=== PATIENT | female | born 1935 | race Caucasian/White ===

== ENCOUNTER 2016-09-10 09:32 | Inpatient (IN) | payer OTHER, MEDICARE ==
[~2016-09-10] VITALS: Ht 157.5 cm; Wt 69.2 kg
[~2016-09-10 09:32] MED LIST: ASPIR 8181 M1 PO; BACTRIM,SEPT1 TABLET PO; CHOLESTYRAMINE P4 GM PO; CHOLESTYRAMINE210 GM PO; COZAAR100 MG PO; COZAAR50 MG PO; FAMOTIDINE20 MG PO; FLEXERIL5 MG PO; FUROSEMIDE20 MG PO; HYDROCODON-ACE1 EAC7 PO; IRON325 M1 PO; LASIX20 MG PO; LEVEMIR FL100 UNIT/1 SC; LEVEMIR FL100 UNITS/ SC; LEVEMIR100 UNIT/2 SC; LEVOTHROID50 MCG PO; LEVOTHYROXINE75 MCG PO; LOPRESSOR100 M1 PO; LOSARTAN POTAS100 MG PO; LOW DOSE ASPIRI81 M1 PO; METAMUCIL0.52 GM PO; METOPROLOL SUC100 MG PO; METOPROLOL TAR100 MG PO; MIRALAX17 GM PO; NOVOLOG; NOVOLOG 10100 UNITS/ SC; NOVOLOG PE100 UNITS/; PEPCID20 MG PO; PREDNISONE20 MG PO; SYNTHROID50 MCG PO; SYNTHROID75 MCG PO; TOPROL XL100 MG PO; VITAMIN D-32000 UNI1 PO; VITAMIN D2000 UNIT PO; [UNRECOGNIZED DRUG - OTHER] PO
[2016-09-10 10:16] VITALS: BP 180/67
[2016-09-10 10:22] LABS: POINT-OF-CARE METER ID UU14174212
[2016-09-10 15:16] LABS: POINT-OF-CARE METER ID UU13113675
[2016-09-10 17:48] VITALS: BP 151/70
[2016-09-10 17:54] LABS: POINT-OF-CARE METER ID UU13113712
[2016-09-10 20:04] VITALS: BP 144/64
[2016-09-10 22:20] LABS: POINT-OF-CARE METER ID UU13113712
[2016-09-11] VITALS: BP 146/65
[2016-09-11 06:15] LABS: HEMATOCRIT 33.7 % (36.0-46.0); MCV 89.4 FL (83-99)
[2016-09-11 06:45] LABS: ANION GAP 10 MEQ/L (2-14); CHLORIDE 108 MEQ/L (99-109); GFR ESTIMATE (CALCULATED) 42 mL/min/; GLUCOSE 255 mg/dL (70-99); POTASSIUM 4.2 MEQ/L (3.7-5.4); SAMPLE HEMOLYSIS CHECK 0; SAMPLE ICTERIC CHECK 0; SAMPLE LIPEMIA CHECK 0; SODIUM 140 MEQ/L (136-147); UREA NITROGEN (BUN) 21 mg/dL (9-23)
[2016-09-11 08:00] VITALS: BP 138/64
[2016-09-11 11:04] LABS: POINT-OF-CARE METER ID UU13113712
[2016-09-11 11:51] VITALS: BP 162/67
[2016-09-11 15:34] VITALS: BP 159/68
[2016-09-11 16:22] LABS: POINT-OF-CARE METER ID UU13113720
[2016-09-11 19:53] VITALS: BP 167/73
[2016-09-11 22:03] LABS: POINT-OF-CARE METER ID UU13113712
[2016-09-12] VITALS: BP 184/80
[2016-09-12 02:23] LABS: ADD MIUA? YES; BILIRUBIN NEGATIVE; BLOOD MODERATE; COLOR YELLOW ((YELLOW)); GLUCOSE (STRIP) 150; KETONES NEGATIVE; LEUKOCYTES NEGATIVE; NITRITE NEGATIVE; PROTEIN (STRIP) NEGATIVE; SPECIFIC GRAVITY 1.013 (1.000-1.030); UROBILINOGEN 0.2 MG/DL (0.2-1.0)
[2016-09-12 02:30] LABS: BACTERIA NONE SEEN /HPF; EPITHELIAL CELLS 1+ /HPF; HYALINE CASTS 0-5 /LPF; MUCUS NONE SEEN /LPF; RED BLOOD CELLS 0-5 /HPF (0-5); WHITE BLOOD CELLS 0-5 /HPF (0-5)
[2016-09-12 04:00] VITALS: BP 185/72
[2016-09-12 06:24] LABS: HEMATOCRIT 32.8 % (36.0-46.0); MCV 89.6 FL (83-99)
[2016-09-12 07:31] LABS: POINT-OF-CARE METER ID UU13113712
[2016-09-12 08:06] VITALS: BP 177/76
[2016-09-12 12:13] LABS: POINT-OF-CARE METER ID UU13113712
[2016-09-12 12:20] VITALS: BP 186/78
[2016-09-12] MEDS ORDERED: BENADRYL25 MG PO (15:31)
[2016-09-12] MEDS ORDERED: XARELTO10 MG PO (15:31)
[2016-09-12] MEDS ORDERED: HYDROCODON-ACE1 EAC7 PO (15:33)
[2016-09-12] MEDS ORDERED: TYLENOL REGULA325 MG PO (15:34)
[2016-09-12] MEDS ORDERED: BISACODYL5 MG PO (15:35)
[2016-09-12] MEDS ORDERED: LIDOCAINE700 MG TD (15:36)
[2016-09-12 15:52] VITALS: BP 146/63
[2016-09-12 16:19] LABS: POINT-OF-CARE METER ID UU13113712
[2016-09-12] MEDS ORDERED: PEPCID20 MG PO (17:38)
[2016-09-12] MEDS ORDERED: CELEBREX200 MG PO (17:38)
[2016-09-12] MEDS ORDERED: REGLAN10 MG PO (17:39)
[2016-09-12] MEDS ORDERED: NORCO 10/3251 TABLET PO (17:40)
== END 2016-09-12 16:30 | DRG 470 ==
LOC: 2SOUTH 09:32 → 3WEST 17:20
PROVIDERS: Orthopaedic Surgery
PROC: 0SRC0J9 Replacement of Right Knee Joint with Synthetic Substitute, Cemented, Open Approach (ICD-10-PCS; principal; 2016-09-10)
DX: M17.11 Unilateral primary osteoarthritis, right knee (principal); I10 Essential (primary) hypertension; I25.2 Old myocardial infarction
CPT/HCPCS: 80048; 81003; 82948; 85014; 85018; C1713; J0131; J0360; J0690; J1170; J1815; J1885; J2175; J2250; J2795; J3010; J7030; J7050; L1820

== ENCOUNTER 2016-09-12 17:18 | Inpatient (IN) | payer OTHER, MEDICARE ==
[~2016-09-12] VITALS: Ht 157.5 cm; Wt 71.2 kg
[~2016-09-12 17:18] MED LIST changes: +BENADRYL25 MG PO; +BISACODYL5 MG PO; +LIDOCAINE700 MG TD; +TYLENOL REGULA325 MG PO; +XARELTO10 MG PO
[2016-09-12 17:31] VITALS: BP 146/63
[2016-09-12] MEDS ORDERED: CELEBREX200 MG PO (17:38)
[2016-09-12] MEDS ORDERED: PEPCID20 MG PO (17:38)
[2016-09-12] MEDS ORDERED: REGLAN10 MG PO (17:39)
[2016-09-12] MEDS ORDERED: NORCO 10/3251 TABLET PO (17:40)
[2016-09-12 21:14] LABS: POINT-OF-CARE METER ID UU14174215
[2016-09-13 00:05] VITALS: BP 174/80
[2016-09-13 04:43] VITALS: BP 154/72
[2016-09-13 05:20] LABS: HEMATOCRIT 33.1 % (36.0-46.0); MCH 29.8 PG (29.0-34.0); MCHC 33.5 G/DL (30.0-36.0); MCV 88.7 FL (83-99); MEAN PLAT.VOLUME 11.7 uM^3 (9.5-12.4); PLATELET COUNT 179 K/uL (156-360); RBC DIS.WIDTH-CV 13.4 % (11.8-14.6); RBC DIS.WIDTH-SD 43.8 % (39-53); RED BLOOD COUNT 3.73 M/uL (3.80-5.20)
[2016-09-13 05:21] LABS: WHITE BLOOD COUNT 9.7 K/uL (4.1-10.2)
[2016-09-13 06:36] LABS: ALKALINE PHOSPHATASE 70 IU/L (3-129); ANION GAP 7 MEQ/L (2-14); CHLORIDE 106 MEQ/L (99-109); GFR ESTIMATE (CALCULATED) 51 mL/min/; SAMPLE HEMOLYSIS CHECK 0; SAMPLE ICTERIC CHECK 0; SAMPLE LIPEMIA CHECK 0; SODIUM 140 MEQ/L (136-147); TOTAL BILIRUBIN 0.8 MG/DL (0.0-1.0); UREA NITROGEN (BUN) 18 mg/dL (9-23)
[2016-09-13 06:37] LABS: GLUCOSE 71 mg/dL (70-99)
[2016-09-13 07:25] LABS: POINT-OF-CARE METER ID UU14174215; POINT-OF-CARE USER ID AHSSSJB31
[2016-09-13 11:35] LABS: POINT-OF-CARE METER ID UU14174215; POINT-OF-CARE USER ID AHSSSJB31
[2016-09-13 15:38] VITALS: BP 168/71
[2016-09-13 17:00] LABS: POINT-OF-CARE METER ID UU14174215
[2016-09-13 21:13] LABS: POINT-OF-CARE METER ID UU13113720
[2016-09-14 05:01] LABS: CHLORIDE 109 mEq/L (99-109); SODIUM 141 mEq/L (136-147)
[2016-09-14 05:02] LABS: GLUCOSE 86 mg/dL (70-99)
[2016-09-14 05:04] LABS: ANION GAP 8 MEQ/L (2-14); POTASSIUM 4.1 mEq/L (3.7-5.4)
[2016-09-14 05:06] LABS: GFR ESTIMATE (CALCULATED) 51 mL/min/
[2016-09-14 05:07] LABS: UREA NITROGEN (BUN) 25 mg/dL (9-23)
[2016-09-14 05:41] VITALS: BP 148/66
[2016-09-14 07:47] LABS: POINT-OF-CARE METER ID UU13113720; POINT-OF-CARE USER ID AHSSSJB31
[2016-09-14 11:50] LABS: POINT-OF-CARE METER ID UU13113720; POINT-OF-CARE USER ID AHSSSJB31
[2016-09-14 15:35] VITALS: BP 145/115
[2016-09-14 16:11] VITALS: BP 148/62
[2016-09-14 16:29] LABS: POINT-OF-CARE METER ID UU13113720
[2016-09-14 21:15] LABS: POINT-OF-CARE METER ID UU14174215
[2016-09-15 05:48] VITALS: BP 146/64
[2016-09-15 06:36] LABS: POINT-OF-CARE METER ID UU13113720; POINT-OF-CARE USER ID ENVGAF
[2016-09-15 11:34] LABS: POINT-OF-CARE METER ID UU13113720; POINT-OF-CARE USER ID ENVGAF
[2016-09-15 15:36] VITALS: BP 177/93
[2016-09-15 16:15] LABS: POINT-OF-CARE METER ID UU14174215
[2016-09-15 21:16] LABS: POINT-OF-CARE METER ID UU14174215
[2016-09-16 05:11] VITALS: BP 129/71
[2016-09-16 05:51] LABS: EOSINOPHIL (%) 5.1 % (0-5); EOSINOPHIL COUNT 0.4 K/uL (0-0.3); HEMATOCRIT 30.4 % (36.0-46.0); IMMATURE GRANULOCYTE (%) 0.6 % (0.0-0.7); INSTRUMENT ABS NEUTROPHIL CT 3.8 K/uL; LYMPHOCYTE COUNT 2.1 K/uL (1.0-2.8); MCH 30.6 PG (29.0-34.0); MCHC 33.6 G/DL (30.0-36.0); MCV 91.3 FL (83-99); MEAN PLAT.VOLUME 11.7 uM^3 (9.5-12.4); MONOCYTE (%) 12.3 % (3-12); MONOCYTE COUNT 0.9 K/uL (0-0.8); NEUTROPHIL (%) 52.1 % (45-76); NEUTROPHIL COUNT 3.8 K/uL (1.8-6.4); PLATELET COUNT 228 K/uL (156-360); RBC DIS.WIDTH-CV 13.2 % (11.8-14.6); RBC DIS.WIDTH-SD 44.4 % (39-53); RED BLOOD COUNT 3.33 M/uL (3.80-5.20); WHITE BLOOD COUNT 7.3 K/uL (4.1-10.2)
[2016-09-16 06:21] LABS: ALKALINE PHOSPHATASE 78 IU/L (3-129); ANION GAP 8 MEQ/L (2-14); CHLORIDE 106 MEQ/L (99-109); GFR ESTIMATE (CALCULATED) 51 mL/min/; GLUCOSE 83 mg/dL (70-99); SAMPLE HEMOLYSIS CHECK 0; SAMPLE ICTERIC CHECK 0; SAMPLE LIPEMIA CHECK 0; SODIUM 139 MEQ/L (136-147); TOTAL BILIRUBIN 0.9 MG/DL (0.0-1.0); UREA NITROGEN (BUN) 21 mg/dL (9-23)
[2016-09-16 06:37] LABS: POINT-OF-CARE METER ID UU14174215; POINT-OF-CARE USER ID ENVGAF
[2016-09-16 11:08] LABS: POINT-OF-CARE METER ID UU14174215
[2016-09-16 15:13] VITALS: BP 177/73
[2016-09-16 17:01] LABS: POINT-OF-CARE METER ID UU14174215
[2016-09-16 21:12] LABS: POINT-OF-CARE METER ID UU13113720
[2016-09-17 05:56] VITALS: BP 193/74
[2016-09-17 06:09] VITALS: BP 153/67
[2016-09-17 07:51] LABS: POINT-OF-CARE METER ID UU14174215; POINT-OF-CARE USER ID AHSSSJB31
[2016-09-17 11:33] LABS: POINT-OF-CARE METER ID UU14174215; POINT-OF-CARE USER ID AHSSSJB31
[2016-09-17 15:25] VITALS: BP 141/60
[2016-09-17 16:36] LABS: POINT-OF-CARE METER ID UU14174215
[2016-09-17 21:21] LABS: POINT-OF-CARE METER ID UU14174215
[2016-09-18 05:02] VITALS: BP 138/65
[2016-09-18 07:21] LABS: POINT-OF-CARE METER ID UU14174215
[2016-09-18 11:36] LABS: POINT-OF-CARE METER ID UU14174215
[2016-09-18 15:57] VITALS: BP 131/60
[2016-09-18 16:31] LABS: POINT-OF-CARE METER ID UU13113720
[2016-09-18 21:36] LABS: POINT-OF-CARE METER ID UU14174215
[2016-09-19 04:53] VITALS: BP 138/61
[2016-09-19 05:54] VITALS: BP 142/64
[2016-09-19 07:48] LABS: POINT-OF-CARE METER ID UU13113720
[2016-09-19 11:54] LABS: POINT-OF-CARE METER ID UU13113720
[2016-09-19 15:40] VITALS: BP 138/65
[2016-09-19 16:31] LABS: POINT-OF-CARE METER ID UU14174215
[2016-09-19 21:07] LABS: POINT-OF-CARE METER ID UU13113720
[2016-09-20 05:56] VITALS: BP 145/64
[2016-09-20 08:02] LABS: POINT-OF-CARE METER ID UU14174215
[2016-09-20] MEDS ORDERED: NOVOLOG PE100 UNITS/ SC (10:12)
[2016-09-20] MEDS ORDERED: CHOLESTYRAMINE210 GM PO (10:12)
[2016-09-20] MEDS ORDERED: XARELTO10 MG PO (10:12)
[2016-09-20] MEDS ORDERED: TYLENOL REGULA325 MG PO (10:12)
[2016-09-20] MEDS ORDERED: LOPRESSOR50 MG PO (10:12)
[2016-09-20] MEDS ORDERED: CELEBREX200 MG PO (10:12)
[2016-09-20] MEDS ORDERED: LOW DOSE ASPIRI81 M1 PO (10:12)
== END 2016-09-20 10:51 | disposition home health service (06) | DRG 560 ==
LOC: 3WEST 17:18
PROVIDERS: Physical Medicine & Rehabilitation Pain Medicine; Psychiatry & Neurology Neurology
PROC: F07M0ZZ Range of Motion and Joint Mobility Treatment of Musculoskeletal System - Whole Body (ICD-10-PCS; principal; 2016-09-12)
DX: Z47.1 Aftercare following joint replacement surgery (principal); Z96.651 Presence of right artificial knee joint; G89.18 Other acute postprocedural pain; M25.561 Pain in right knee; I12.9 Hypertensive chronic kidney disease with stage 1 through stage 4 chronic kidney disease, or unspecified chronic kidney disease; N18.9 Chronic kidney disease, unspecified; N17.9 Acute kidney failure, unspecified; I25.2 Old myocardial infarction; D62 Acute posthemorrhagic anemia; M17.11 Unilateral primary osteoarthritis, right knee; R26.2 Difficulty in walking, not elsewhere classified; E87.6 Hypokalemia; R30.0 Dysuria; R19.7 Diarrhea, unspecified; G89.29 Other chronic pain; G31.84 Mild cognitive impairment of uncertain or unknown etiology; M54.5 Low back pain; K59.00 Constipation, unspecified; M25.551 Pain in right hip; Z88.8 Allergy status to other drugs, medicaments and biological substances; Z87.440 Personal history of urinary (tract) infections; Z88.1 Allergy status to other antibiotic agents; Z88.0 Allergy status to penicillin
CPT/HCPCS: 80048; 80053; 82948; 85025; 85027; 87086; 97110 GO; 97530 GP